=== PATIENT | female | born 1940 | race Caucasian/White ===

== ENCOUNTER → 2016-11-05 | Outpatient (CLI) | payer OTHER ==
[~2016-11-05] MED LIST: GADOBUTROL 10 ML VIAL IVP ONE
[2016-11-05 15:55] LABS: CREATININE 0.7 mg/dL (0.6-1.0); GLOMERULAR FILTRATION RATE > 60
== END ==
LOC: FIMAGING 15:02
PROVIDERS: ATTEND Internal Medicine Hematology & Oncology
DX: Z13.828 Encounter for screening for other musculoskeletal disorder (principal); C85.90 Non-Hodgkin lymphoma, unspecified, unspecified site
CPT/HCPCS: 72157; A9585

== ENCOUNTER → 2017-07-16 | Outpatient (CLI) | payer OTHER | LOC: FIMAGING 13:23 | PROVIDERS: ATTEND Family Medicine | DX: Z12.31 Encounter for screening mammogram for malignant neoplasm of breast (principal) | CPT/HCPCS: G0202 ==

== ENCOUNTER → 2018-07-17 | Outpatient (CLI) | payer OTHER | END | disposition home or self-care (01) | LOC: FIMAGING 13:59 | PROVIDERS: ATTEND Family Medicine | DX: Z12.31 Encounter for screening mammogram for malignant neoplasm of breast (principal); Z85.72 Personal history of non-Hodgkin lymphomas ==

== ENCOUNTER 2018-08-09 13:28 | Inpatient (IN) | payer OTHER ==
[2018-08-09] MEDS ORDERED: ACETAMINOPHEN 325 MG TAB PO PRN (15:13)
[2018-08-09] MEDS ORDERED: ONDANSETRON DISINTEGRATING 4 MG TAB PO PRN (15:13)
[2018-08-09] MEDS ORDERED: ONDANSETRON 4 MG/2 ML VIAL IVP PRN (15:13)
--- NOTE | 2018-08-09 15:54 | GCON ---
HEMATOLOGY ONCOLOGY CONSULTATION Ms. Bledsoe is an 78-year-old female who was admitted for recurrence and symptom management and possi ble treatment of a diffuse large B-cell lymphoma. To review, patient was diagnosed in 2006 when she presented with an asymptomatic lymph node that was excised and felt to be a stage IA marginal zone ly mphoma. She received no additional treatment at that time and then presented in May of 2013 wit h a diffuse large B-cell lymphoma, stage MELLISA. She presents at this time with cord compression and cuellar d a significant epidural mass in the mid-thoracic spine. She had disease in her liver and bone. She had a resection. However, it recurred quite quickly and was then treated with 6 cycles of R-CHOP, a long with intrathecal therapy and radiation therapy. She completed that treatment in October of 2013 a nd has been in remission since then. Over the last month or so, she has been having some right-sided jaw pain for a number of weeks. An M RI showed a large mass in the right top ironer space. This involved the inferior temporalis muscle a nd possibly lateral pterygoid muscle, this is separate from the parotid gland. She had a PET scan pe rformed on 08/08, which showed marked increased uptake associated with the right top ironer space les ion, measuring 54 x 39 mm with an SUV of 21. There were also numerous areas of increased uptake asso ciated with masses within the abdomen and pelvis, in the omentum and mesentery, a medical customer service representative left upper quadrant mass measured 34 x 30 mm. A right mid-abdominal omental mass measured 49 x 34 mm. A right mesenteric mass measured 32 x 58 mm, and an anterior mesenteric mass near the midline in the m id-to-upper pelvis measured 34 x 45 cm. All the SUV's were greater than 20, some in the 30 range. S he came to clinic today clearly dehydrated and some pain, and she is being admitted for further evalu ation. In addition to the pain in her jaw, she has had some discomfort in her right abdomen and she has been significantly constipated. Weight has been reasonably stable. She denies any B symptoms. PAST MEDICAL HISTORY: Otherwise unremarkable. SURGICAL HISTORY: Includes hysterectomy, lymph node biopsy and thoracic laminectomy x2 in May. FAMILY HISTORY: Her mother late in life of uterine cancer. SOCIAL HISTORY: She is to Bill. REVIEW OF SYSTEMS: Negative except as discussed above. PHYSICAL EXAMINATION: GENERAL: Today, she is an alert female, although appears in mild distress. V ITAL SIGNS: Blood pressure 122/80, temperature is 98.4, room air sat is 95%. HEENT: She is not ict janet. There is a mass involving the right cheek, somewhat firm and slightly tender. LUNGS: Clear. CARDIAC: Unremarkable. ABDOMEN: Shows normal bowel sounds, is slightly distended. EXTREMITIES: No edema. NEUROLOGIC: Nonfocal. LABS: CBC today shows a white count of 8.61, hemoglobin of 12.9, hematocrit 36.6, and platelet count of 292,000. Chemistry panel from 2 days ago showed a sodium of 126, creatinine 0.6, chloride of 91, and a bilirubin of 1.7. LDH and uric acid are pending from today. I should note that patient had a biopsy of the mass performed by Dr. Moore which showed a diffuse l arge B-cell lymphoma. Flow showed CD-19 and CD-20 positivity, CD-5, CD-10, and CD-23 were negative. This is felt to be a nongerminal center type. Of note, the 2013 lymphoma was a germinal center type . IMPRESSION: Patient with recurrence of a diffuse large B-cell lymphoma involving a mass in her right cheek and intra-abdominal lymph nodes. She is ill and is being admitted for evaluation. PLAN: At this time is to control her pain and to work on her constipation. She is somewhat dehydrat ed and I think intravenous hydration would be warranted, we would like to check her electrolytes, as she was somewhat hyponatremic a few days ago. There is a risk of COMPUTER NUMERICAL CONTROL MACHINIST involvement and I think we shou ld obtain an MRI of the brain and a lumbar puncture. In terms of salvage regimens, Dr. Francis and I had discussed the case and it might be reasonable to consider bendamustine and rituximab, another opt ion would be the R squared regimen using Rituxan and Revlimid. She is probably at low risk of tumor lysis, but we will check her uric acid. She has significant issues with steroids and really would li ke to avoid those at all costs. She seems to have some thrush in her mouth and we will start her on Diflucan. /[id number]/MODL
[2018-08-09] MEDS ORDERED: traMADol 50 MG TAB PO PRN (16:05)
[2018-08-09] MEDS ORDERED: POLYETHYLENE GLYCOL 3350 17 GM PKT PO PRN (16:15)
[2018-08-09] MEDS ORDERED: BISACODYL 10 MG SUPP PR PRN (16:15)
[2018-08-09] MEDS ORDERED: LACTULOSE 20 GM/30 ML UDCUP PO PRN (16:15)
[2018-08-09] MEDS ORDERED: MAGNESIUM HYDROXIDE 30 ML UDCUP PO PRN (16:15)
[2018-08-09] MEDS: OXYCODONE/APAP 5/325 TAB PO PRN ×3 (16:21→21:02)
--- NOTE | 2018-08-09 16:26 | PDGENHP ---
History and Physical - Chief Complaint Right sided jaw pain, dehydration - History of Present Illness This is an 78 y/o female with history of lymphoma presenting directly from [facility] d/t right sided jaw pain, dehydration, nausea, vomiting and constipation. She denies chest pains, SOB, dysuria, diarrhea, fevers, chills. She reports to me one month prior she began to have right-sided jaw pain making it difficult to open her mouth or eat. She initially visited her dentist who recommended she f/u with Dr. Carla DDS but a surgeon specializing in TMJ concerns. She was then recommended to f/u with ENT Dr. Moore. She had a x-ray first to ensure it wasn't her teeth or bones. Then had a MRI that showed the soft tissue mass, onset of lymphoma. She recently had a PET scan that showed not only lymphoma on the right side of her jaw, but in her abdomen as well as her right hip. Please review consult note from Dr. Patel for more specific details. Past Medical/Surgical History 1. Lymphoma (2012), mass in mid-thoracic spine. Disease found in liver and bone. Completed treatment October 2013, was in remission 2. Cataract surgery (2016) 3. MOHs Social 1. to , Bill 2. Denies tobacco or illicit drug use. She is thinking heavily about using medical cannabis. Drinks occasionally with a glass or two of wine/week History Information - Allergies/Home Medication List Allergies/Adverse Reactions: hydromorphone HCl [From Dilaudid] Allergy (Unknown, Verified 08/09/18 15:33) Other-Enter Comments Home Medications: Cholecalciferol Vit D3 [Vitamin D3 (*)] 1,000 units PO DAILY 08/09/18 [Last Taken Unknown] Herbals/Supplements -Info Only 1 ea PO DAILY 08/09/18 [Last Taken Unknown] Multivitamins [Multivitamin (*)] 1 each PO DAILY 08/09/18 [Last Taken Unknown] I have personally reviewed and updated: family history, medical history, social history, surgical history Past Medical History: See HPI list - Surgical History Additional surgical history: See HPI list - Family History Additional family history: Mother of uterine cancer at 98 y/o. Father of heart issues at 72 y/o. Brother of stomach cancer at 55 y/o - Social History Smoking Status: Never smoked Alcohol Use: Rarely Drug Use: None Review of Systems Review of Systems: ROS: 10pt was reviewed & negative except for what was stated in HPI & below Constitutional: Reports: malaise EENMT: Reports: ear pain, sore throat Cardiac: Reports: no symptoms Respiratory: Reports: no symptoms Gastrointestinal: Reports: vomitting, abdominal pain, constipation Genitourinary: Reports: no symptoms Muscolosketal: Reports: no symptoms Skin: Reports: no symptoms Neurological: Reports: no symptoms Hematologic/Lymphatic: Reports: no symptoms Immunologic/Allergy: Reports: other (See allergy list) Physical Exam Physical Exam: Lab data and imaging reviewed Temp Pulse Resp BP Pulse Ox 36.9 C 66 18 163/68 H 93 08/09/18 15:06 08/09/18 15:06 08/09/18 15:06 08/09/18 15:06 08/09/18 15:06 Constitutional: no apparent distress, uncomfortable Eyes: PERRL, anicteric sclera, EOMI Ears, Nose, Mouth, Throat: hearing normal, ears appear normal, oral thrush, dry mucous membranes, other (Unable to open mouth fully; yellow appearing lesion inside right buccal) Cardiovascular: regular rate and rhythym, no murmur, rub, or gallop, No edema Peripheral Pulses: 2+: dorsalis-pedis (R) (Radial 2+), dorsalis-pedis (L) ( Radial 2+) Respiratory: no respiratory distress, no rales or rhonchi, clear to auscultation Gastrointestinal: normoactive bowel sounds, soft, non-tender abdomen, tenderness Genitourinary: no bladder fullness, no bladder tenderness Skin: warm, normal color, no rashes or abrasions, no fluctuance, no induration, No mottled Musculoskeletal: full muscle strength, no muscle tenderness, normal joint ROM, no joint effusions Neurologic: AAOx3, sensation intact bilaterally, CN II-XII Intact Psychiatric: interacting appropriately, not anxious, not encephalopathic, thought process linear Lymph, Heme, Immunologic: lymphadenopathy Lab Data & Imaging Review 08/09/18 16:27 08/09/18 16:27 Assessment & Plan Plan: This is a 78 y/o female with hx of lymphoma presenting with what appears to be reoccurrence of lymphoma onset one month prior to her right jaw, abdomen and right hip. She is being followed by her oncologist, Dr. Patel. 1. Right-sided jaw abscess: please see Dr. Patel's consult note for further details. She is able to swallow. -Brain MRI w/wo contrast -LP by IR, cytology requested -Manage pain with either Percocet or Ultram; avoid steroids -Oncology consulted and aware -Uric acid pending 2. Hyponatremia secondary to suspected hypovolemia: d/t her mouth pain, she is unable to eat properly or hydrate -Na (131); will give IVF and recheck CBC tomorrow -Encouraged fluids 3. Constipation: last BM was 4 days ago. C/o ongoing problems with BMs since 1 month. -Bowel regimen; fleet enema PRN -Encourage ambulation -Encourage high-fiber diet 4. Nausea: anti-emetics PRN, IVF 5. Thrush: nystain swish and spit or swallow Diet: Regular VTE ppx: SCDs, initiate Lovenox subq after LP Code: Full Dispo: Admit to inpatient
[2018-08-09 16:38] LABS: PLATELET COUNT 266 10^3/uL (150-400)
--- NOTE | 2018-08-09 16:44 | ASMTCMCOM ---
CM Note CM Note Notes: Chart review completed by CM. Pt admitted for rt sided jaw pain and dehydration. Pt is in remission for lymphoma as of October 2013. Pt is and lives independently with in [place]. No therapies ordered at this time. Anticipate pt will discharge independently. CM to follow. D/C Plan: Independent Date Signed: 08/09/2018 04:42 PM Electronically Signed By:Hilary Islas
--- NOTE | 2018-08-09 17:12 | HOSPPROG ---
Hospitalist Progress Note Assessment/Plan: Pt seen in conjunction with our RAIL SETTER. Pt send for direct admission for dehydration and likely Large B Cell recurrence and treatment. She is having right sided facial pain and swelling. Pain meds have been provided Afebrile. #Large B-Cell Recurrence #Right sided Jaw Pain with Right Masticular mass #Dehydration #Right abd pain #Thrush #steroid sensitivities, will avoid #Recent Hyponatremia Plan: IVF MRI Brain LP Check Uric Acid Avoid Steroids Diflucan Onc consult agree with RAIL SETTER's A&P per her H&P Subjective: pain is better Objective: Vital Signs Temp Pulse Resp BP Pulse Ox 36.9 C 66 18 163/68 H 93 08/09/18 15:06 08/09/18 15:06 08/09/18 15:06 08/09/18 15:06 08/09/18 15:06 Laboratory Results 08/09/18 16:27 08/09/18 16:27 - Physical Exam Constitutional: chronically ill appearing Eyes: PERRL Ears, Nose, Mouth, Throat: moist mucous membranes Cardiovascular: regular rate and rhythym, No edema Respiratory: no respiratory distress, no rales or rhonchi, clear to auscultation Gastrointestinal: normoactive bowel sounds Skin: warm Neurologic: AAOx3 Psychiatric: interacting appropriately, not anxious, not encephalopathic Lymph, Heme, Immunologic: No petechiae ICD10 Worksheet Patient Problems: Problems Problem Status Onset Myelopathy Acute Thoracic spinal stenosis Acute
[2018-08-09 17:57] LABS: INR 1.05 (0.83-1.16); PROTIME(PATIENT) 13.9 SEC (12.0-15.0)
[2018-08-09] MEDS ORDERED: GADOBUTROL 10 ML VIAL IVP ONE (20:21)
[2018-08-09] MEDS: NYSTATIN SUSP 500000 UNIT/5 ML UD LIQ PO SCH (20:56)
[2018-08-09] MEDS: SENNOSIDES/DOCUSATE SODIUM TAB PO SCH (21:09)
[2018-08-10] MEDS: NS 1,000 ML IV SCH ×3 (00:10→19:48)
[2018-08-10] MEDS: OXYCODONE/APAP 5/325 TAB PO PRN ×6 (01:02→20:09)
[2018-08-10] MEDS: NYSTATIN SUSP 500000 UNIT/5 ML UD LIQ PO SCH ×4 (05:03→20:11)
[2018-08-10] MEDS: MULTIVITAMINS 1 EACH TAB PO SCH (08:00)
[2018-08-10] MEDS: SENNOSIDES/DOCUSATE SODIUM TAB PO SCH ×2 (08:33→20:20)
[2018-08-10] MEDS: CHOLECALCIFEROL VIT D3 1,000 UNITS TAB PO SCH (08:33)
--- NOTE | 2018-08-10 09:04 | PDMN ---
Medical Necessity Medical necessity: MCG: M123 dehydration: other condition req. further eval: 78 yr old with PMHx lymphoma, presents with jaw pain, dehydration, N/V/ constipation, unable to open her mouth to eat, MRI shows soft tissue mass new onset, recurrence, diffuse large B-cell lymphoma. PET shows lymphoma in jaw , abdomen, R hip, - anticipate > 2 MN ongoing med nec care, further monitoring and tx of above.
--- NOTE | 2018-08-10 15:50 | SOAPPROG ---
SOAP Progress Note Assessment/Plan: A/P: * Relapsed DLBCL: Over 4-1/2 years from R-CHOP (completed 10/2013). right facial mass, intraabdominal disease (largest 4.9 cm). No evidence of TOWING PILOT involvement by MRI, LP pending. Plan Bendamustine/Rituxan. Anticipate Rituxan tomorrow, Bendamustine days 2,3 when available (Sunday?). We discussed side effects, including but not limited to, infusion reactions, myelosuppression, rash, nausea, fatigue. She is adamantly opposed to palliative steroids due to insomina, agitation. No high risk features for TLS (normal LDH, non-bulky dz). - Await LP - Allopurinol, hydration - Anticipate Rituxan tomorrow, as above. Discussed with pharmacy. * Right facial pain: adequately controlled with current pain regimen. * Elevated TBili: repeat in a.m. and fractionate. 08/10/18 15:53 Subjective: Pain adequately controlled with oxycodone. Some abdominal distention and constipation. No other concerns. O: VS reviewed. Gen: very pleasant women in NAD. HEENT: right facial mass. CV: RRR, no edema. Lungs: CTA. Abd: mildly distended, soft. Neuro: grossly nonfocal. Laboratory Tests 08/09/18 08/09/18 08/10/18 13:34 16:27 05:20 WBC 6.98 Hgb 11.5 L Plt Count 240 Sodium Potassium Chloride Carbon Dioxide BUN Creatinine Uric Acid 3.9 Total Bilirubin AST ALT Alkaline Phosphatase Lactate Dehydrogenase 476 08/10/18 05:20 WBC Hgb Plt Count Sodium 133 L Potassium 4.3 Chloride 103 Carbon Dioxide 25 BUN 11 Creatinine 0.6 Uric Acid Total Bilirubin 1.5 H AST 17 ALT 25 Alkaline Phosphatase 74 Lactate Dehydrogenase Brain MRI: 5.5 cm right facial mass around the right mandibular ramus, extends along the posterior maxilla. Objective: Vital Signs Temp Pulse Resp BP Pulse Ox 36.8 C 72 16 127/83 H 97 08/10/18 11:59 08/10/18 11:59 08/10/18 11:59 08/10/18 11:59 08/10/18 11:59 Laboratory Results 08/10/18 05:20 08/10/18 05:20 08/09/18 08/10/18 08/11/18 05:59 05:59 05:59 Intake Total 1982 Balance 1982 PT 13.9 SEC (12.0-15.0) 08/09/18 17:38 INR 1.05 (0.83-1.16) 08/09/18 17:38 ICD10 Worksheet Patient Problems: Problems Problem Status Onset Myelopathy Acute Thoracic spinal stenosis Acute
--- NOTE | 2018-08-10 16:32 | HOSPPROG ---
Hospitalist Progress Note Assessment/Plan: Subjective Follow-up on recurrent B-cell lymphoma. No acute events overnight. Patient seems quite ready to restart chemotherapy. Case was reviewed with interventional Radiology and Oncology today. The tentative plan is for lumbar puncture tomorrow and then proceed with treatment. Objective Vital signs as detailed below Exam General-awake alert conversant no acute distress Heart-regular rate and rhythm no murmurs Lungs-Clear to auscultation with normal respiratory effort Abdomen-soft nontender nondistended normal bowel sounds -no Aguirre catheter in place Extremities-no significant pitting edema or calf pain with palpation Skin-no concerning skin rashes noted Labs as detailed below. Assessment and plan Lymphoma-patient with recurrent diffuse large B-cell lymphoma. Abnormal PET scan done as an outpatient. Plan is for lumbar puncture tomorrow and then to initiate treatment thereafter. Hyponatremia-continue IV fluids overnight. Constipation-continue bowel regimen. Thrush-nystatin. DVT prophylaxis-no heparin or Lovenox in anticipation of lumbar puncture. Disposition-likely would be able to return home once medically clear. Objective: Vital Signs Temp Pulse Resp BP Pulse Ox 36.8 C 70 16 165/70 H 93 08/10/18 16:00 08/10/18 16:00 08/10/18 16:00 08/10/18 16:00 08/10/18 16:00 Laboratory Results 08/10/18 05:20 08/10/18 05:20 08/09/18 08/10/18 08/11/18 05:59 05:59 05:59 Intake Total 1983 Balance 1982 PT 13.9 SEC (12.0-15.0) 08/09/18 17:38 INR 1.05 (0.83-1.16) 08/09/18 17:38 ICD10 Worksheet Patient Problems: Problems Problem Status Onset Myelopathy Acute Thoracic spinal stenosis Acute
[2018-08-10 17:09] LABS: INR 1.02 (0.83-1.16); PROTIME(PATIENT) 13.6 SEC (12.0-15.0)
[2018-08-10] MEDS: ALLOPURINOL 300 MG TAB PO SCH (18:02)
[2018-08-11] MEDS: OXYCODONE/APAP 5/325 TAB PO PRN ×6 (00:06→19:51)
[2018-08-11] MEDS: NS 1,000 ML IV SCH (03:48)
[2018-08-11] MEDS: NYSTATIN SUSP 500000 UNIT/5 ML UD LIQ PO SCH ×4 (05:54→19:52)
[2018-08-11] MEDS: ALLOPURINOL 300 MG TAB PO SCH (09:45)
[2018-08-11] MEDS: CHOLECALCIFEROL VIT D3 1,000 UNITS TAB PO SCH (09:45)
[2018-08-11] MEDS: MULTIVITAMINS 1 EACH TAB PO SCH (09:46)
[2018-08-11] MEDS: SENNOSIDES/DOCUSATE SODIUM TAB PO SCH (09:55)
[2018-08-11] MEDS ORDERED: LIDOCAINE 1% 300 MG/30 ML SDV ONE (11:36)
--- NOTE | 2018-08-11 12:48 | SOAPPROG ---
SOAP Progress Note Assessment/Plan: A/P: * Relapsed DLBCL: Over 4-1/2 years from R-CHOP (completed 10/2013). right facial mass, intraabdominal disease (largest 4.9 cm). No evidence of CONDUCTOR FREIGHT involvement by MRI, LP pending. Plan Bendamustine/Rituxan. Anticipate Rituxan tomorrow, Bendamustine days 2,3 when available (probably Tu?). We discussed side effects, including but not limited to, infusion reactions, myelosuppression , rash, nausea, fatigue. She is adamantly opposed to palliative steroids due to insomina, agitation. No high risk features for TLS (normal LDH, non-bulky dz ). - LP today - Allopurinol, hydration, check TLS labs - Rituxan today, bendamustine (liekly reduced dose, 70 mg/m2 D2, 3). Discussed with pharmacy. - needs PICC or port * Right facial pain: adequately controlled with current pain regimen. 08/11/18 12:48 Subjective: Up walking in [place]av[place]. Pain controlled. Waiting for LP. A little anxious about tx. No other concerns. O: VS reviewed. Gen: A&O, NAD. HEENT: right facial fullness. Lungs: CTA. Laboratory Tests 08/11/18 08/11/18 05:15 05:15 WBC 6.62 Hgb 10.8 L Plt Count 237 Sodium 134 L Potassium 3.6 Chloride 105 Carbon Dioxide 25 BUN 8 Creatinine 0.5 L Glucose 87 Uric Acid 3.7 Calcium 8.2 L Total Bilirubin 0.9 Conjugated Bilirubin 0.2 Unconjugated Bilirubin 0.7 AST 18 ALT 20 Alkaline Phosphatase 73 Lactate Dehydrogenase 499 Objective: Vital Signs Temp Pulse Resp BP Pulse Ox 36.6 C 63 16 156/76 H 97 08/11/18 11:47 08/11/18 11:47 08/11/18 11:47 08/11/18 11:47 08/11/18 11:47 Laboratory Results 08/11/18 05:15 08/11/18 05:15 08/10/18 08/11/18 08/12/18 05:59 05:59 05:59 Intake Total 1982 1200 Balance 1982 1200 PT 13.6 SEC (12.0-15.0) 08/10/18 16:35 INR 1.02 (0.83-1.16) 08/10/18 16:35 ICD10 Worksheet Patient Problems: Problems Problem Status Onset Myelopathy Acute Thoracic spinal stenosis Acute
[2018-08-11] MEDS ORDERED: ACETAMINOPHEN 325 MG TAB PO SCH (13:00)
[2018-08-11] MEDS ORDERED: riTUXimab 600 MG in NS 540 ML IV SCH (14:00)
--- NOTE | 2018-08-11 15:18 | HOSPPROG ---
Hospitalist Progress Note Assessment/Plan: Subjective Follow-up on recurrent B-cell lymphoma. No acute events overnight. Patient had a he lumbar puncture done today. We discussed a bowel regimen to ensure she does not get too constipated needing narcotic pain medications. We also discussed IV access in anticipation of chemotherapy. She seemed agreeable to have a port placed. She has experience with this from her prior treatment. Case reviewed with Oncology as well. Objective Vital signs as detailed below Exam General-awake alert conversant no acute distress Heart-regular rate and rhythm no murmurs Lungs-Clear to auscultation with normal respiratory effort Abdomen-soft nontender nondistended normal bowel sounds -no Aguirre catheter in place Extremities-no significant pitting edema or calf pain with palpation Skin-no concerning skin rashes noted Labs as detailed below. Assessment and plan Lymphoma-patient with recurrent diffuse large B-cell lymphoma. Abnormal PET scan done as an outpatient. Lumbar puncture has been completed and patient will start on treatment today. Appreciate Oncology is assistance. Hyponatremia-improved to 134 today. continue IV fluids overnight. Constipation-continue with daily MiraLax and nightly Senokot if no bowel movement during the daytime. Patient does have other as needed medications as ordered. Thrush-nystatin. DVT prophylaxis-likely could start Lovenox tomorrow if no bleeding issues overnight. Disposition-likely would be able to return home once medically clear. Objective: Vital Signs Temp Pulse Resp BP Pulse Ox 36.8 C 77 16 140/68 H 98 08/11/18 14:57 08/11/18 14:57 08/11/18 11:47 08/11/18 14:57 08/11/18 14:57 Laboratory Results 08/11/18 05:15 08/11/18 05:15 08/10/18 08/11/18 08/12/18 05:59 05:59 05:59 Intake Total 1982 1200 Balance 1982 1200 PT 13.6 SEC (12.0-15.0) 08/10/18 16:35 INR 1.02 (0.83-1.16) 08/10/18 16:35 ICD10 Worksheet Patient Problems: Problems Problem Status Onset Myelopathy Acute Thoracic spinal stenosis Acute
[2018-08-11] MEDS: SENNOSIDES 1 TAB PO SCH (19:51)
[2018-08-12] MEDS: OXYCODONE/APAP 5/325 TAB PO PRN ×5 (04:00→21:37)
[2018-08-12] MEDS: NYSTATIN SUSP 500000 UNIT/5 ML UD LIQ PO SCH ×4 (06:25→21:37)
[2018-08-12] MEDS: ALLOPURINOL 300 MG TAB PO SCH (09:39)
[2018-08-12] MEDS: CHOLECALCIFEROL VIT D3 1,000 UNITS TAB PO SCH (09:39)
[2018-08-12] MEDS: POLYETHYLENE GLYCOL 3350 17 GM PKT PO SCH (09:40)
[2018-08-12] MEDS: MULTIVITAMINS 1 EACH TAB PO SCH (09:40)
[2018-08-12] MEDS: POTASSIUM CL 10 MEQ TAB PO SCH (12:03)
[2018-08-12] MEDS ORDERED: ceFAZolin 2 GM/DEXTROSE 100 ML IV ONE (12:04)
--- NOTE | 2018-08-12 12:11 | SOAPPROG ---
SOAP Progress Note Assessment/Plan: Assessment: Patience is an 78-year-old female with history of relapsed large cell lymphoma. 1. Relapsed large-cell lymphoma: She initially received treatment in 2014 with R-CHOP, radiation and intrathecal with complete response. She now has relapsed disease. She has received Rituxan with plans of proceeding with bendamustine. I agree with proceeding with [id number] placement today. We will arrange for chemotherapy with bendamustine as an outpatient later this week. She is on allopurinol for prophylaxis. Uric acid is normal today. Creatinine is normal today. 2. Abdominal pain: I feel this is secondary to opiates. She has received Dulcolax, lactulose to milk a magnesia. 3. Cancer related pain: This mostly in her right face related to the lymphoma. She is currently receiving Percocet. Subjective: No acute events overnight. Her right facial pain is centrally the same. She does have some ongoing constipation has not had a bowel movement today. No chest pain shortness of breath. Objective: Vital Signs Temp Pulse Resp BP Pulse Ox 36.2 C 66 16 131/63 H 92 08/12/18 11:23 08/12/18 11:23 08/12/18 11:23 08/12/18 11:23 08/12/18 11:23 Laboratory Results 08/12/18 04:34 08/12/18 04:34 08/11/18 08/12/18 08/13/18 05:59 05:59 05:59 Intake Total 1200 800 Balance 1200 800 PT 13.6 SEC (12.0-15.0) 08/10/18 16:35 INR 1.02 (0.83-1.16) 08/10/18 16:35 General: Pleasant-appearing female in no acute distress Cardiovascular: Regular rhythm Pulmonary: Clear to auscultation Abdomen: Bowel sounds are present slight tenderness in the right upper quadrant no rebound or guarding Extremities: No cyanosis clubbing or edema Skin: No skin lesions ICD10 Worksheet Patient Problems: Problems Problem Status Onset Myelopathy Acute Thoracic spinal stenosis Acute
--- NOTE | 2018-08-12 14:27 | ASMTCMCOM ---
CM Note CM Note Notes: Pt continues to progress medically. Getting a port today or tomorrow and will likely follow-up with oncology outpatient. Pt continues to likely be discharged independently. CM will continue to be available should needs arise. Plan: Independent Date Signed: 08/12/2018 02:26 PM Electronically Signed By:SINCERE Gay
--- NOTE | 2018-08-12 15:08 | HOSPPROG ---
Hospitalist Progress Note Assessment/Plan: Subjective Follow-up on recurrent B-cell lymphoma. No acute events overnight. No headache complaints. I reviewed her case with Dr. Robles with surgery today and the plan is for port placement later on in the afternoon. She has been made NPO and lunchtime. Case was also reviewed with Oncology and the current plan is for discharge tomorrow presuming no complications from port placement and then plan on doing outpatient chemotherapy on Sunday and in the clinic. Objective Vital signs as detailed below Exam General-awake alert conversant no acute distress Heart-regular rate and rhythm no murmurs Lungs-Clear to auscultation with normal respiratory effort Abdomen-soft nontender nondistended normal bowel sounds -no Aguirre catheter in place Extremities-no significant pitting edema or calf pain with palpation Skin-no concerning skin rashes noted Labs as detailed below. Assessment and plan Lymphoma-patient with recurrent diffuse large B-cell lymphoma. Abnormal PET scan done as an outpatient. Lumbar puncture has been completed and patient has received a dose of Rituxan. Appreciate Oncology is assistance. The plan is for port placement this evening and then outpatient chemotherapy on Sunday and I recommend [facility]. Presuming no complications overnight she could be discharged on 08/13/2018. Hyponatremia-improved. I think we can hold off on IV fluids at this point time. Constipation-continue with daily MiraLax and nightly Senokot if no bowel movement during the daytime. Patient does have other as needed medications as ordered. Thrush-nystatin. DVT prophylaxis-compression devices. Holding Lovenox/heparin in light of port placement. Disposition-likely would be able to return home once medically clear. Objective: Vital Signs Temp Pulse Resp BP Pulse Ox 36.2 C 66 16 131/63 H 92 08/12/18 11:23 08/12/18 11:23 08/12/18 11:23 08/12/18 11:23 08/12/18 11:23 Laboratory Results 08/12/18 04:34 08/12/18 04:34 08/11/18 08/12/18 08/13/18 05:59 05:59 05:59 Intake Total 1200 800 Balance 1200 800 PT 13.6 SEC (12.0-15.0) 08/10/18 16:35 INR 1.02 (0.83-1.16) 08/10/18 16:35 ICD10 Worksheet Patient Problems: Problems Problem Status Onset Myelopathy Acute Thoracic spinal stenosis Acute
[2018-08-12] MEDS ORDERED: BUPIVACAINE 0.5% 30 ML SDV ONE (18:08)
[2018-08-12] MEDS ORDERED: LR 1,000 ML IV ONE (19:03)
[2018-08-12] MEDS ORDERED: CEFAZOLIN 2 GM/DEXTROSE/100 ML BAG IV ONE (19:06)
--- NOTE | 2018-08-12 19:12 | PDANEPAE ---
ANE History of Present Illness 78 yo female with recurrent lymphoma for port placement. ANE Past Medical History - Cardiovascular History Hx Hypertension: No Hx Arrhythmias: No Hx Chest Pain: No Hx Coronary Artery / Peripheral Vascular Disease: No Hx CHF / Valvular Disease: No Hx Palpitations: No - Pulmonary History Hx COPD: No Hx Asthma/Reactive Airway Disease: No Hx Recent Upper Respiratory Infection: Yes Hx Oxygen in Use at Home: No Hx Sleep Apnea: No Sleep Apnea Screening Result - Last Documented: Negative Pulmonary History Comment: sinus congestion - pt states this is a chronic issue. - Endocrine History Hx Diabetes: No Hypothyroid: No Hyperthyroid: No Obesity: no - Renal History Hx Renal Disorders: No - Liver History Hx Hepatic Disorders: No - Cancer History Hx Cancer: Yes Cancer History Comment: B cell lymphoma - GI History Hx Gastrointestinal Disorders: Yes Gastrointestinal History Comment: Pt unable to eat currently due to R sided masseter mass - Chronic Pain History Chronic Pain: Yes ANE Review of Systems Review of Systems: - Systems Gastrointestinal: Reports: other (facial mass makes eating painful) ANE Patient History - Allergies Allergies/Adverse Reactions: hydromorphone HCl [From Dilaudid] Allergy (Unknown, Verified 08/09/18 15:33) Other-Enter Comments - Home Medications Home Medications: Cholecalciferol Vit D3 [Vitamin D3 (*)] 1,000 units PO DAILY 08/09/18 [Last Taken Unknown] Herbals/Supplements -Info Only 1 ea PO DAILY 08/09/18 [Last Taken Unknown] Multivitamins [Multivitamin (*)] 1 each PO DAILY 08/09/18 [Last Taken Unknown] - NPO status NPO Since - Liquids (Date): 08/12/18 NPO Since - Liquids (Time): 16:15 NPO Since - Solids (Date): 08/12/18 NPO Since - Solids (Time): 10:30 - Anes Hx Anes Hx: no prior problems - Smoking Hx Smoking Status: Never smoked - Alcohol Use Alcohol Use: Rarely ANE Labs/Vital Signs - Labs Result Diagrams: 08/12/18 04:34 08/12/18 04:34 - Vital Signs Blood Pressure: 143/76 Heart Rate: 73 Respiratory Rate: 16 O2 Sat (%): 92 Height: 167.64 cm Weight: 58.967 kg ANE Physical Exam - Airway Mallampati Score: Class 4 Mouth exam: small mouth opening - Pulmonary Pulmonary: clear to auscultation - Cardiovascular Cardiovascular: regular rate and rhythym - ASA Status ASA Status: III ANE Anesthesia Plan Anesthesia Plan: GA with mask Total IV Anesthesia: Yes
[2018-08-12] MEDS ORDERED: PROPOFOL/EMULSION 500 MG/50 ML BOTTLE IV ONE (19:19)
[2018-08-12] MEDS ORDERED: LIDOCAINE 2% 5 ML SDV ONE (19:19)
[2018-08-12] MEDS ORDERED: fentaNYL 100 MCG/2 ML INJ ONE (19:19)
[2018-08-12] MEDS ORDERED: LIDOCAINE 1% 300 MG/30 ML SDV ONE (19:36)
--- NOTE | 2018-08-12 19:43 | POSTANESTH ---
Post Anesthetic Evaluation Cardiovascular Status: Normal, Stable Respiratory Status: Normal, Stable Level of Consciousness/Mental Status: Can Participate in Eval, Alert and Oriented Pain Control: Adequate, Prn Tx Ordered (L shoulder hurts only when she moves the arm) Nausea/Vomiting Control: Adequate, Prn Tx Ordered Complications Possibly Related to Anesthesia: None Noted
[2018-08-12] MEDS ORDERED: BACITRACIN ZINC 0.5 OZ OINTTUBE TP ONE (20:05)
[2018-08-12] MEDS ORDERED: LR 500 ML IV PRN (20:06)
[2018-08-12] MEDS ORDERED: NALOXONE HCL 0.4 MG/ML INJ IVP PRN (20:06)
[2018-08-12] MEDS ORDERED: ACETAMINOPHEN 500 MG TAB PO PRN (20:06)
[2018-08-12] MEDS ORDERED: fentaNYL 100 MCG/2 ML INJ IVP PRN (20:06)
[2018-08-12] MEDS ORDERED: ONDANSETRON 4 MG/2 ML VIAL IVP PRN (20:06)
[2018-08-12] MEDS ORDERED: KETOROLAC 30 MG/1 ML SDV ONE (20:08)
--- NOTE | 2018-08-12 20:19 | POSTOPPROG ---
Post Op Note Date of Operation: 08/12/18 Surgeon: Jose Cruz Robles Anesthesiologist: mindy Anesthesia: GET(General Endotracheal) Pre-op Diagnosis: lymphoma, recurrent Post-op Diagnosis: same Indication: chemo access Procedure: left subclavian port with flouro Findings: good position and flow Inf/Abcess present in the surg proc area at time of surgery?: No Depth: Deep Incisional (Fascial) EBL: Minimal Complications: 0
[2018-08-12] MEDS: SENNOSIDES 1 TAB PO SCH (21:37)
[2018-08-13] MEDS: OXYCODONE/APAP 5/325 TAB PO PRN ×3 (04:35→13:22)
[2018-08-13] MEDS: NYSTATIN SUSP 500000 UNIT/5 ML UD LIQ PO SCH ×2 (04:37→14:24)
[2018-08-13] MEDS ORDERED: PROTOCOL MAGNESIUM 1 DOSE IV PRN (07:04)
[2018-08-13] MEDS ORDERED: PROTOCOL POTASSIUM 1 DOSE MISC PRN (07:04)
[2018-08-13] MEDS: ALLOPURINOL 300 MG TAB PO SCH (08:58)
[2018-08-13] MEDS: CHOLECALCIFEROL VIT D3 1,000 UNITS TAB PO SCH (08:59)
[2018-08-13] MEDS: MULTIVITAMINS 1 EACH TAB PO SCH (08:59)
[2018-08-13] MEDS: POTASSIUM CL 10 MEQ TAB PO SCH (09:00)
--- NOTE | 2018-08-13 10:22 | SOAPPROG ---
SOAP Progress Note Assessment/Plan: Assessment/Plan: 78 Y F recurrent lymphoma, s/p port placement c [place], POD#1. Ok to access port today if needed. Some clot and oozing at incision site this am. Running suture pulled snug, cleaned site, reapplied steris. Wound is dry now. Observe for bleeding. D/c per medicine. Needs f/u in about 2 weeks for suture removal. 08/13/18 10:20 Objective: Vital Signs Temp Pulse Resp BP Pulse Ox 36.5 C 70 18 163/75 H 99 08/13/18 07:40 08/13/18 07:40 08/13/18 07:40 08/13/18 07:40 08/13/18 07:40 Laboratory Results 08/13/18 05:16 08/13/18 05:16 08/12/18 08/13/18 08/14/18 05:59 05:59 05:59 Intake Total 800 250 Balance 800 250 PT 13.6 SEC (12.0-15.0) 08/10/18 16:35 INR 1.02 (0.83-1.16) 08/10/18 16:35 ICD10 Worksheet Patient Problems: Problems Problem Status Onset Myelopathy Acute Thoracic spinal stenosis Acute
[2018-08-13] MEDS: POLYETHYLENE GLYCOL 3350 17 GM PKT PO SCH (11:07)
[2018-08-13 11:47] VITALS: BP 104/69
--- NOTE | 2018-08-13 12:46 | ASDISCHSUM ---
Discharge Information Plan Status:Home with No Needs Medically Cleared to Leave: Discharge Date: CM D/C Disposition:Home, Routine, Self-Care ADT D/C Disposition:Home, Routine, Self-Care Projected Discharge Date: Transportation at D/C:Family Discharge Delay Reason: Follow-Up Date: Discharge Slot: Final Diagnosis: Placement Information Patient Contact Information Contact Name:JEFFELMIRA Relationship: Address:[address] Work Phone: City:[facility] Phone: State/Zip Code:[place] [address] Email: Financial Information Financial Class:Medicare Advantage Plans Primary Plan Desc:[employer] MEDICARE ADV Primary Plan Number:[id number] Secondary Plan Desc: Secondary Plan Number: Assessment Information [facility] Progress Note CM Note CM Note Notes: Chart review completed by CM. Pt admitted for rt sided jaw pain and dehydration. Pt is in remission for lymphoma as of October 2013. Pt is and lives independently with in [place]. No therapies ordered at this time. Anticipate pt will discharge independently. CM to follow. D/C Plan: Independent Date Signed: 08/09/2018 04:42 PM Electronically Signed By:Hilary Islas LACE LACE Length of stay for Answers: 3 days current admission Acuity / Level of Answers: Yes Care: Did the patient have an inpatient admission? Comorbidities - select Answers: Any tumor (including all that apply lymphoma or leukemia) Opioid dependence / Chronic pain # of Emergency department Answers: 0 visits in the last 6 months Score: 12 Date Signed: 08/13/2018 12:44 PM Electronically Signed By:SINCERE Gay [facility] CM Progress Note CM Note CM Note Notes: Pt continues to progress medically. Getting a port today or tomorrow and will likely follow-up with oncology outpatient. Pt continues to likely be discharged independently. CM will continue to be available should needs arise. Plan: Independent Date Signed: 08/12/2018 02:26 PM Electronically Signed By:SINCERE Gay Case Management Discharge Plan Note Case Management Discharge Discharge Order Complete? Answers: Yes Patient to Obtain Answers: via Family Medications Transportation Arranged Answers: Family/Friends Family Notified Answers: Yes Discharge Comments Notes: Cm met with pt and family and provided Meals on Wheels information. No other CM needs identified at this time. Family to transport. Date Signed: 08/13/2018 12:43 PM Electronically Signed By:SINCERE Gay Intervention Information
--- NOTE | 2018-08-14 04:22 | GDS ---
DISCHARGE DIAGNOSES: 1. Diffuse large B-cell lymphoma with recurrence including mass in the right clean up supervisor and temporal is muscle. 2. Hyponatremia, resolved. 3. Constipation, improved. PROCEDURE: Port placement by Dr. Kenji Robles, August 12, 2018. CORPORATE SALES REPRESENTATIVE: Dr. Rolanda Falk, Oncology. HISTORY: For details, please see history and physical dated August 09, 2018. In brief, the patient is an 78-year-old female with a history of diffuse large B-cell lymphoma, initially diagnosed in 201 4, who presented to the emergency department with right-sided jaw pain and evidence of volume depleti on. She was admitted to the hospital for further management. HOSPITAL COURSE: The patient was admitted to the med/surg unit. She underwent brain MRI which showe d a mass in the right clean up supervisor and anterior right temporalis muscle, most likely representing lymph judit. Oncology consult was obtained. Lumbar puncture was performed. She received initial dose of Ri tuxan chemotherapy with plans for outpatient chemo with bendamustine later this week. She underwent port placement in anticipation of this. She was also started on allopurinol which was continued at d ischarge. She received a bowel regimen for her constipation and has stooled. DISPOSITION: Patient is discharged home in stable condition. FOLLOWUP: 1. Dr. Kerri Francis, Oncology. 2. Dr. Kenji Robles in 2 weeks for suture removal. 3. Dr. Lynette Herbert, Primary Care. DISCHARGE MEDICATIONS: Please see [facility] completed outpatient medication list. New medications on discharge include Tylenol 650 p.o. q.4 hours p.r.n., allopurinol 300 mg p.o. daily, #30, no refills. She will continue all other outpatient medications as previously prescribed. /[id number]/MODL
--- NOTE | 2018-08-15 05:53 | GOP ---
DATE OF OPERATION: 08/12/2018 SURGEON: Jose Cruz Robles MD PREOPERATIVE DIAGNOSIS: Recurrent lymphoma. POSTOPERATIVE DIAGNOSIS: Recurrent lymphoma. PROCEDURE PERFORMED: Left subclavian port placement with fluoroscopy. FINDINGS: good position and flow DESCRIPTION OF PROCEDURE: The patient was taken to the operating room where she received a satisfactory general laryngeal mask anesthetic, placed in supine position, prepped and draped in the usual sterile fashion. She was then placed in Trendelenburg. A single stick was made in the left subclavian vein. Guidewire was introduced. Position was confirmed with fluoroscopy. A subcu pocket was made in the second intercostal space. Port tubing was passed from that pocket to the subclavian insertion site, trimmed to the appropriate length using fluoroscopic guidance. It was then introduced into the right atrium via the introducer sheath and dilator system. Port was secured to the fascia with 3-0 Vicryl. The pocket was closed with 3-0 Vicryl for the subcu and a 4-0 Prolene subcuticular stitch for the skin. Good backflow was achieved. The catheter was flushed with heparin saline. The entrance site was closed with 4-0 Prolene mattress suture. She tolerated the procedure well, was taken care room in good condition. COMPLICATIONS: There were no complications. /[id number]/MODL MTDD
== END 2018-08-13 15:12 | disposition home or self-care (01) | DRG 841 ==
LOC: F1N 14:21 → OBSVTOIN 14:21
PROVIDERS: ADMIT Family Medicine; ATTEND Family Medicine
PROC: 009U3ZX Drainage of Spinal Canal, Percutaneous Approach, Diagnostic (ICD-10-PCS; principal; 2018-08-11)
PROC: 0JH60XZ Insertion of Tunneled Vascular Access Device into Chest Subcutaneous Tissue and Fascia, Open Approach (ICD-10-PCS; 2018-08-12)
PROC: 02H633Z Insertion of Infusion Device into Right Atrium, Percutaneous Approach (ICD-10-PCS; 2018-08-12)
DX: C83.31 Diffuse large B-cell lymphoma, lymph nodes of head, face, and neck (principal); E87.1 Hypo-osmolality and hyponatremia; B37.9 Candidiasis, unspecified; E86.0 Dehydration; K59.00 Constipation, unspecified; Z80.0 Family history of malignant neoplasm of digestive organs; Z80.49 Family history of malignant neoplasm of other genital organs
CPT/HCPCS: A9585; C1788; J0690; J1200; J1642; J1885; J2704; J3010; J9312